=== PATIENT | male | born 1985 | race African-American/Black ===

== ENCOUNTER 2023-09-15 03:29 | Emergency (ER) | payer MEDICAID, SELFPAY ==
[~2023-09-15] VITALS: Ht 177.8 cm; Wt 101.0 kg
[~2023-09-15 03:29] MED LIST: NOCURR
[2023-09-15 03:32] VITALS: TEMP 98.2
[2023-09-15] MEDS ORDERED: IPRATROPIUM BROMIDE 0.5 MG/2.5 ML NEB SOLUTION NEB ONE (04:00)
[2023-09-15] MEDS ORDERED: ALBUTEROL SULFATE 2.5 MG/0.5 ML NEB SOLUTION NEB ONE (04:00)
[2023-09-15 04:03] LABS: BASOPHILS % (AUTO) 0.2 % (0.0-2.0); EOSINOPHILS % (AUTO) 1.3 % (1.0-6.0); HEMATOCRIT 39.3 % (41-53); LYMPHOCYTES # (AUTO) 4.2 K/uL (1.0-4.8); LYMPHOCYTES % (AUTO) 49.9 % (22.0-44.0); MEAN CORPUSCULAR HEMOGLOBIN 29.1 pg (26.0-34.0); MEAN CORPUSCULAR HGB CONC 33.1 G/dL (31.0-37.0); MEAN CORPUSCULAR VOLUME 88 fL (80-100); MONOCYTES # (AUTO) 0.7 K/uL (0.1-1.0); MONOCYTES % (AUTO) 8.3 % (2.0-9.0); NEUTROPHILS # (AUTO) 3.4 K/uL (1.8-7.7); NEUTROPHILS % (AUTO) 40.3 % (40.0-70.0); PLATELET COUNT (AUTO) 229 K/uL (150-450); RED BLOOD CELL COUNT(AUTO) 4.47 MIL/uL (4.50-5.90); RED CELL DISTRIBUTION WIDTH 14.1 % (11.5-14.5); WHITE BLOOD COUNT (AUTO) 8.4 K/uL (4.5-11.0)
[2023-09-15 04:11] LABS: ANION GAP 10 mmol/L (8-16); CARBON DIOXIDE 27 mmol/L (22-29); CHLORIDE 100 mmol/L (98-107); CREATININE 1.48 mg/dL (0.60-1.30); GLOMERULAR FILTR. RATE CALC > 60 mL/min (>60); GLUCOSE,RANDOM 99 mg/dL (70-110); POTASSIUM 3.7 mmol/L (3.5-5.1); SODIUM SERUM 137 mmol/L (136-145); UREA NITROGEN, BLOOD 12 mg/dL (7-18)
[2023-09-15 04:16] VITALS: PULSE 104; RESP 17; O2SAT 97
[2023-09-15 04:17] VITALS: PULSE 104; RESP 22; O2SAT 97
[2023-09-15 04:21] LABS: TROPONIN I-HIGH SENSITIVITY 7 ng/L (<76)
[2023-09-15 04:26] LABS: ALANINE AMINOTRANSFERASE 34 U/L (12-78); ALBUMIN 3.4 g/dL (3.4-5.0); ALKALINE PHOSPHATASE 112 U/L (46-116); ASPARTATE AMINOTRANSFERASE 28 U/L (15-37); BILIRUBIN,TOTAL 0.2 mg/dL (0.1-1.0); CREATINE KINASE, TOTAL ONLY 600 U/L (39-308); TOTAL PROTEIN, SERUM 7.4 g/dL (6.4-8.2)
[2023-09-15 04:32] LABS: B-TYPE NATRIURETIC PEPTIDE < 5 pg/mL (0-100)
[2023-09-15] MEDS ORDERED: SODIUM CHLORIDE 0.9% 1,000 ML IV ONE (05:00)
[2023-09-15] MEDS ORDERED: PredniSONE 20 MG TABLET PO ONE (05:00)
[2023-09-15] MEDS ORDERED: KETOROLAC TROMETHAMINE 30 MG/ML VIAL IVP ONE (06:15)
[2023-09-15] MEDS ORDERED: TraMADol HCL 50 MG TABLET PO ONE (06:15)
[2023-09-15] MEDS ORDERED: ALBU18HF12 IH (06:21)
[2023-09-15] MEDS ORDERED: PRED-554 PO (06:21)
[2023-09-15 06:35] VITALS: BP 137/75; PULSE 90; RESP 18
== END 2023-09-15 06:36 | disposition home or self-care (01) ==
LOC: EMS 03:30
DX: R07.89 Other chest pain (principal); K29.70 Gastritis, unspecified, without bleeding; F17.210 Nicotine dependence, cigarettes, uncomplicated; F15.90 Other stimulant use, unspecified, uncomplicated
CPT/HCPCS: 99285; 94060; 96374; 71045; 96361; 80053; 82550; 83880; 84484; 85025; 36415; 93005; 94640; J1885; J7512; J7030; J7613